=== PATIENT | male | born 1995 | race African-American/Black ===

== ENCOUNTER 2018-12-21 10:57 | Emergency (ER) | payer OTHER ==
[~2018-12-21] VITALS: Ht 162.6 cm; Wt 63.6 kg
[2018-12-21] MEDS ORDERED: ACET1TAB55 PO (11:01)
--- NOTE | 2018-12-21 11:38 | REP ---
Clinical: Right foot pain Technique: AP, lateral, bilateral oblique views right foot . Findings: The osseous structures and joint spaces are intact and normal. There is no evidence for acute fracture or dislocation. Surrounding soft tissues are unremarkable. No subcutaneous emphysema or radiodense foreign body. Impression: Normal right foot series . No acute fracture or dislocation. Electronically Signed by Neel Maria MD 12/21/2018 11:30 A
[2018-12-21 12:18] VITALS: BP 116/71
== END 2018-12-21 12:19 | disposition home or self-care (01) ==
LOC: M ED 10:57
DX: M72.2 Plantar fascial fibromatosis (principal)

== ENCOUNTER 2019-06-21 09:53 | Emergency (ER) | payer OTHER ==
[~2019-06-21] VITALS: Ht 162.6 cm; Wt 62.7 kg
[~2019-06-21 09:53] MED LIST: ACET1TAB55 PO
[2019-06-21] MEDS ORDERED: NS 1,000 ML IV ONE (10:45)
[2019-06-21] MEDS ORDERED: diphenhydrAMINE INJ 50MG/ML VIAL (J1200) IV ONE (10:45)
[2019-06-21] MEDS ORDERED: METOCLOPRAMIDE INJ 10MG/2ML VIAL (J2765) IV ONE (10:45)
[2019-06-21] MEDS ORDERED: KETOROLAC 30 MG/ML VIAL (J1885) IV ONE (10:45)
[2019-06-21 10:58] LABS: HEMATOCRIT 44.9 % (42.0-52.0); HEMOGLOBIN 14.3 g/dl (13.5-17.5); MEAN CORPUSCULAR HEMOGLOBIN 29.1 pg (27.0-33.0); MEAN CORPUSCULAR HGB CONC 31.8 g/dl (32.0-36.5); MEAN CORPUSCULAR VOLUME 91.4 fl (80.0-96.0); PLATELET COUNT, AUTOMATED 172 10^3/uL (150-450); RED BLOOD COUNT 4.91 10^6/uL (4.30-6.10); WHITE BLOOD COUNT 6.4 10^3/uL (4.0-10.0)
[2019-06-21 11:31] LABS: FREE T4 1.01 NG/DL (0.76-1.46); THYROID STIMULATING HORMONE 0.768 uIU/ML (0.358-3.740)
[2019-06-21 12:38] VITALS: BP 115/55
--- NOTE | 2019-06-21 13:04 | REP ---
CT BRAIN WITHOUT CONTRAST: 06/21/2019. Clinical history: Chronic headache. Findings: No prior study. Standard noncontrast protocol was followed with soft tissue and bone windows for each slice level. Lateral ventricles midline, symmetric and without dilatation or displacement. Basal ganglia symmetric and normal. Smart white junction differentiation is well maintained. Cortical stripe was preserved with no vascular territory infarct, intracranial hemorrhage, mass, mass effect or edema. This is a benign anterior falcine calcification. The posterior fossa shows brainstem and cerebellum intact and no posterior fossa bleed. There is no extra-axial hemorrhage in the tentorium or falx region. Mastoids and visualized sinuses grossly intact. Skull base and calvarium show no fracture or focal lesion. Impression: 1. Normal noncontrast CT brain. No sinus or mastoid abnormalities, intracranial hemorrhage, acute infarct or other significant finding. Electronically Signed by Buzz Javed MD 06/21/2019 07:04 P
== END 2019-06-21 12:50 | disposition home or self-care (01) ==
LOC: M ED 09:53
DX: G44.009 Cluster headache syndrome, unspecified, not intractable (principal); Z82.0 Family history of epilepsy and other diseases of the nervous system
CPT/HCPCS: 70450; 80047; 83735; 84439; 84443; 85027; 96374; 96375; 99284; J1200; J1885; J2765